=== PATIENT | female | born 1965 | race Caucasian/White ===

== ENCOUNTER 2019-12-23 10:42 | Outpatient (CLI) | payer MEDICARE, SELFPAY ==
--- NOTE | ~2019-12-23 | XR_ITS ---
EXAMINATION: XR chest 2V DATE: 12/23/2019 11:09 INDICATION: Chronic obstructive pulmonary disease TECHNIQUE: PA and lateral views of the chest were obtained. COMPARISON: Chest radiograph dated 11/30/2018 FINDINGS: The lungs remain clear with no focal airspace opacities, pulmonary edema, pleural effusion or pneumot horax. The cardiomediastinal silhouette is normal. Visualized bones and soft tissues are unremarkable . IMPRESSION: 1. No acute cardiopulmonary disease. Reviewed, dictated and finalized at location A.
== END 2019-12-23 10:43 | disposition home or self-care (01) ==
LOC: ANHIMG 10:49
PROVIDERS: PCP Physician Assistant; Visit Provider Physician Assistant
DX: J44.9 Chronic obstructive pulmonary disease, unspecified (principal)
CPT/HCPCS: 71046

== ENCOUNTER 2020-09-06 09:45 | Outpatient (CLI) | payer MEDICARE, SELFPAY ==
--- NOTE | ~2020-09-06 | MM_ITS ---
EXAMINATION: MM screening anibal BI w darwin HISTORY: Screening TECHNIQUE: Craniocaudal and mediolateral oblique 3-D tomosynthesis images were obtained and synthetic 2-D images were generated. CAD analysis was submitted and interpreted. COMPARISON: No prior mammogram is available for comparison at this institution. BREAST PARENCHYMAL COMPOSITION: There are scattered areas of fibroglandular density. FINDINGS: There is no evidence of suspicious mass, calcification, or architectural distortion to sugg est malignancy in either breast. There has been no suspicious interval change. IMPRESSION: 1. No mammographic evidence of malignancy. 2. Recommend routine screening mammography in one year. BI-RADS Category 1: Negative Reviewed, dictated and finalized at location A.
== END 2020-09-06 09:46 | disposition home or self-care (01) ==
LOC: ANHIMG 09:52
PROVIDERS: PCP Physician Assistant; Visit Provider Physician Assistant
DX: Z12.31 Encounter for screening mammogram for malignant neoplasm of breast (principal)
CPT/HCPCS: 77063; 77067

== ENCOUNTER 2021-09-26 16:34 | Outpatient (CLI) | payer MEDICARE, SELFPAY ==
--- NOTE | ~2021-09-26 | MM_ITS ---
EXAMINATION: MM screening anibal BI w darwin HISTORY: Screening TECHNIQUE: Craniocaudal and mediolateral oblique 3-D tomosynthesis images were obtained and synthetic 2-D images were generated. CAD analysis was submitted and interpreted. COMPARISON: 08/27/2020 BREAST PARENCHYMAL COMPOSITION: There are scattered areas of fibroglandular density. FINDINGS: There is no evidence of suspicious mass, calcification, or architectural distortion to sugg est malignancy in either breast. There has been no suspicious interval change. IMPRESSION: 1. No mammographic evidence of malignancy. 2. Recommend routine screening mammography in one year. BI-RADS Category 1: Negative Reviewed, dictated and finalized at location A.
== END 2021-09-26 16:35 | disposition home or self-care (01) ==
LOC: ANHIMG 16:35
PROVIDERS: PCP Physician Assistant; Visit Provider Physician Assistant
DX: Z12.31 Encounter for screening mammogram for malignant neoplasm of breast (principal)
CPT/HCPCS: 77063; 77067

== ENCOUNTER 2023-04-01 15:48 | Emergency (ER) | payer MEDICARE, SELFPAY ==
[2023-04-01 15:56] VITALS: BP 165/100; PULSE 93; RESP 16; TEMP 37.3; O2SAT 99
--- NOTE | 2023-04-01 16:27 | ED.URI ---
HPI - URI/Sore Throat General Chief Complaint: Upper Respiratory Infection Stated Complaint: Sinus/Fever Time Seen by Provider: 04/01/23 16:27 Source: patient Mode of arrival: ambulatory Limitations: no limitations History of Present Illness HPI Narrative: 57 yo F presents with c/o R ear pain, nasal congestion, PND, cough for since yesterday. Current everyday smoker. hx of COPD. Reports SOB, wheezing. does not currently have inhaler. Afebrile. No resp distress noted. all systems reviewed and negative except as noted above. Related Data Home Medications Medication Instructions Recorded Confirmed albuterol sulfate 90 mcg/actuation See Rx Instructions .Route .COMPLEX 04/01/23 04/01/23 aerosol inhaler budesonide-formoterol HFA 160 2 puff inhalation BID 04/01/23 04/01/23 mcg-4.5 mcg/actuation aerosol inhaler (Symbicort) Allergies Allergy/AdvReac Type Severity Reaction Status Date / Time No Known Allergies Allergy Verified 04/01/23 15:55 Review of Systems Review of Systems: CONSTITUTIONAL: Denies fever, chills, or sweats. EYES: Denies visual changes, redness, or discharge. ENT: report rhinorrhea, congestion, sore throat. Denies otalgia. CARDIOVASCULAR: Denies chest pain, palpitations, or edema. RESPIRATORY: Reports cough and dyspnea with exertion. GASTROINTESTINAL: Denies abdominal pain, nausea, vomiting, or diarrhea. GENITOURINARY: Denies dysuria or hematuria. SKIN: Denies rash or itching. MUSCULOSKELETAL: Denies back pain, joint pain, or myalgia. NEUROLOGIC: Denies headache, numbness, or weakness. PSYCHIATRIC: Denies anxiety or depression. All other systems reviewed are negative, except as documented in HPI. [facility] Comments At time of signature, agree with nursing past medical, surgical, social and family history. There is no relevant family history pertinent to the presenting complaint. Exam Narrative: GENERAL: This is a well-nourished, well-developed patient, in no apparent distress. HEAD: normocephalic, atraumatic. EYES: PERRL. Sclera clear/white. Vision is grossly intact. EARS: External ears normal, auditory canals clear and without drainage, . Purulence Fluid to right TM with mild erythema. Left TM normal. No perforation bilaterally. NOSE: External nose normal with nasal drainage, erythema swelling to bilateral nares. THROAT: Mucous membranes moist, postnasal drainage NECK: Neck supple, non-tender without lymphadenopathy, masses or thyromegaly. CARDIOVASCULAR: Regular rate and rhythm without murmurs, gallops, or rubs. RESPIRATORY: coarse lung sounds throughout all lung nielsen. No wheezes, rales, or rhonchi. SKIN: warm, Dry, intact with no suspicious lesions or rash, good texture and turgor. NEURO: awake, alert, and oriented to person, place and time. There were no obvious focal neurologic abnormalities. EXTREMITIES: No joint tenderness, effusion, or edema noted. Course Course Level of Care: Express Care Visit Vital Signs Vital signs: Vital Signs Temperature 37.3 C 04/01/23 15:56 Pulse Rate 93 04/01/23 15:56 Respiratory Rate 16 04/01/23 15:56 Blood Pressure 165/100 H 04/01/23 15:56 Pulse Oximetry 99 04/01/23 15:56 Oxygen Delivery Room Air 04/01/23 15:56 Temperature 37.3 C 04/01/23 15:56 Pulse Rate 93 04/01/23 15:56 Respiratory Rate 16 04/01/23 15:56 Blood Pressure 165/100 H 04/01/23 15:56 Pulse Oximetry 99 04/01/23 15:56 Oxygen Delivery Room Air 04/01/23 15:56 Reviewed MDM - URI/Sore Throat MDM Narrative Medical decision making narrative: Patient is aware of diagnosis, understands and agrees to treatment plan. Anticipatory guidance given. Patient agrees to follow-up as directed and is aware of reasons to seek care at the emergency department. Portions of this record may have been created with voice recognition software Lab Data Labs: Influenza A Screen Negative
== END 2023-04-01 16:31 | disposition home or self-care (01) ==
PROVIDERS: Emergency Provider Nurse Practitioner Family
DX: H66.91 Otitis media, unspecified, right ear (principal); J20.9 Acute bronchitis, unspecified; Z20.822 Contact with and (suspected) exposure to COVID-19; I10 Essential (primary) hypertension; J44.9 Chronic obstructive pulmonary disease, unspecified
CPT/HCPCS: 87081; 87426; 87804; 87880; 99213; C9803; G0463

== ENCOUNTER 2023-10-03 19:47 | Emergency (ER) | payer MEDICARE, SELFPAY ==
[2023-10-03 19:54] VITALS: BP 164/116; PULSE 112; RESP 18; TEMP 36.7; O2SAT 98
--- NOTE | 2023-10-03 20:32 | ED.URI ---
HPI - URI/Sore Throat General Chief Complaint: Upper Respiratory Infection Stated Complaint: Sinus Source: patient, RN notes reviewed and old records reviewed Related Data Home Medications Medication Instructions Recorded Confirmed Unknown Bp Med 1 tablet PO DAILY 10/03/23 10/03/23 Allergies Allergy/AdvReac Type Severity Reaction Status Date / Time No Known Allergies Allergy Verified 10/03/23 19:54 Course Vital Signs Vital signs: Vital Signs Temperature 36.7 C 10/03/23 19:54 Pulse Rate 112 H 10/03/23 19:54 Respiratory Rate 18 10/03/23 19:54 Blood Pressure 164/116 H 10/03/23 19:54 Pulse Oximetry 98 10/03/23 19:54 Oxygen Delivery Room Air 10/03/23 19:54 Temperature 36.7 C 10/03/23 19:54 Pulse Rate 112 H 10/03/23 19:54 Respiratory Rate 18 10/03/23 19:54 Blood Pressure 164/116 H 10/03/23 19:54 Pulse Oximetry 98 10/03/23 19:54 Oxygen Delivery Room Air 10/03/23 19:54 Discharge Plan Discharge Prescriptions: No Action Unknown Bp Med 1 tablet PO DAILY albuterol sulfate 90 mcg/actuation HFA aerosol inhaler 2 puff inhalation QID PRN (Reason: shortness of breath or wheezing) Qty: 8.5 0RF Follow-up/Referrals: Shawna,MARRY Carpio [Primary Care Provider] -
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
== END 2023-10-03 20:44 | disposition home or self-care (01) ==
PROVIDERS: Emergency Provider Registered Nurse; PCP Physician Assistant
DX: J40 Bronchitis, not specified as acute or chronic (principal); H00.021 Hordeolum internum right upper eyelid; J01.40 Acute pansinusitis, unspecified; F17.210 Nicotine dependence, cigarettes, uncomplicated; J44.9 Chronic obstructive pulmonary disease, unspecified
CPT/HCPCS: 99213; G0463

== ENCOUNTER 2024-10-20 18:16 | Emergency (ER) | payer MEDICARE, SELFPAY ==
[2024-10-20 18:28] VITALS: BP 138/94; PULSE 85; RESP 18; TEMP 36.6; O2SAT 100
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
== END 2024-10-20 19:05 | disposition home or self-care (01) ==
PROVIDERS: Emergency Provider Nurse Practitioner Family; PCP Physician Assistant
DX: J06.9 Acute upper respiratory infection, unspecified (principal); R05.9 Cough, unspecified; J44.9 Chronic obstructive pulmonary disease, unspecified; F17.210 Nicotine dependence, cigarettes, uncomplicated
CPT/HCPCS: 99213; G0463